=== PATIENT | male | born 1985 | race Caucasian/White ===

== ENCOUNTER → 2025-04-28 13:53 | Outpatient (REF) | payer OTHER, SELFPAY | LOC: EMG 13:53 | PROVIDERS: ATTENDING PHYSICIAN Family Medicine | DX: R20.8 Other disturbances of skin sensation (principal); M25.552 Pain in left hip; M25.511 Pain in right shoulder; R20.0 Anesthesia of skin | CPT/HCPCS: 95886; 95913 ==